=== PATIENT | male | born 1995 | race Caucasian/White ===

== ENCOUNTER 2020-05-25 08:50 | Emergency (ER) | payer SELFPAY ==
[~2020-05-25] VITALS: Ht 172.7 cm; Wt 59.1 kg
--- NOTE | 2020-05-25 09:47 | NUR ---
pt given sandwich, applesauce, juice, cheese. pt eating no distress noted. no assistance needed.
[2020-05-25 10:01] VITALS: BP 120/78
== END 2020-05-25 10:02 | disposition home or self-care (01) ==
LOC: ER 08:51
DX: F31.9 Bipolar disorder, unspecified (principal); R00.0 Tachycardia, unspecified; F15.90 Other stimulant use, unspecified, uncomplicated; F17.200 Nicotine dependence, unspecified, uncomplicated; Z72.89 Other problems related to lifestyle; Z59.0 Homelessness
CPT/HCPCS: 99284

== ENCOUNTER 2020-06-03 16:36 | Emergency (ER) | payer MEDICAID, OTHER ==
[~2020-06-03] VITALS: Ht 177.8 cm; Wt 50.0 kg
[2020-06-03] MEDS ORDERED: normal saline 1000ML IV soln IV ONE (16:50)
[2020-06-03 17:08] LABS: HEMOGLOBIN 13.7 g/dl (14.0-17.9); MEAN CORPUSCULAR HEMOGLOBIN 30.2 PG (27.0-31.0); MEAN CORPUSCULAR VOLUME 90.2 FL (78-98); PLATELET COUNT 302 X10'3 (140-440); WHITE BLOOD COUNT 4.6 X10'3 (4.5-11.0)
[2020-06-03 17:09] LABS: BASOPHILS % (AUTO) 0.9 % (0-1); HEMATOCRIT 40.9 % (42.0-52.0); LYMPHOCYTES # (AUTO) 1.4 X10'3 (1.1-4.8); LYMPHOCYTES % (AUTO) 29.8 % (21-51); MEAN CORPUSCULAR HGB CONC 33.4 g/dL (33.0-36.5); MEAN PLATELET VOLUME 8.2 FL (7.4-10.4); MONOCYTES # (AUTO) 0.6 X10'3 (0-0.9); NEUTROPHILS # (AUTO) 2.5 X10'3 (1.8-7.7); NEUTROPHILS % (AUTO) 55.3 % (42-75); RED BLOOD COUNT 4.53 X10'6 (4.70-6.10); RED CELL DISTRIBUTION WIDTH 14.1 % (11.5-14.5)
[2020-06-03 17:19] LABS: ALANINE AMINOTRANSFERASE 23 U/L (12-78); ALBUMIN 3.4 G/DL (3.4-5.0); ALBUMIN/GLOBULIN RATIO 1.4 (1.1-1.5); ALKALINE PHOSPHATASE 73 IU/L (46-116); ANION GAP 10 (8-16); ASPARTATE AMINO TRANSFERASE 17 U/L (10-37); BILIRUBIN,TOTAL 0.4 MG/DL (0.1-1.0); BLOOD UREA NITROGEN 17 MG/DL (7-18); BUN/CREATININE RATIO 17.2 (5.4-32.0); CALCIUM 8.8 MG/DL (8.5-10.1); CHLORIDE 103 MMOL/L (99-107); CREATININE 0.99 MG/DL (0.60-1.10); ETHANOL < 0.010 GM/DL (0.0-0.010); GLUCOSE 89 MG/DL (70-104); POTASSIUM 3.5 MMOL/L (3.5-5.1); SODIUM 141 MMOL/L (135-145); TOTAL CARBON DIOXIDE 28.2 MMOL/L (24-32); TOTAL PROTEIN 5.9 G/DL (6.4-8.2); eGFR > 90 ML/MIN
--- NOTE | 2020-06-03 17:45 | NUR ---
Pt reports feeling like he wishes he was , suicidial, no plan. He is calm and cooperative
[2020-06-03] MEDS ORDERED: ondansetron/PF 4mg/2ml inj IV ONE (18:25)
[2020-06-03 18:31] LABS: COLOR,URINE YELLOW (Yellow); GLUCOSE, URINE NEGATIVE (Neg); KETONES,URINE TRACE mg/dl (Neg); LEUKOCYTE ESTERASE ,URINE NEGATIVE (Neg); NITRITES, URINE NEGATIVE (Neg); OCCULT BLOOD,URINE LARGE (Neg); PROTEIN,URINE NEGATIVE (Neg)
[2020-06-03 18:39] LABS: URINE AMPHETAMINE SCREEN NEGATIVE (Neg); URINE BARBITUATE SCREEN NEGATIVE (Neg); URINE BENZODIAZEPINES SCREEN NEGATIVE (Neg); URINE CANNABINOID SCREEN NEGATIVE (Neg); URINE COCAINE SCREEN NEGATIVE (Neg); URINE METHADONE SCREEN NEGATIVE (Neg); URINE OPIATE SCREEN NEGATIVE (Neg); URINE PHENCYCLIDINE SCREEN NEGATIVE (Neg)
[2020-06-03 18:40] LABS: UA COLLECTION TYPE URINAL
[2020-06-03 18:41] LABS: CLARITY,URINE SLIGHTLY CLOUDY (Clear)
[2020-06-03 18:42] LABS: BACTERIA,URINE FEW /HPF (Neg); MUCUS STRANDS MODERATE /LPF (Neg); RBC,URINE 50-100 /HPF (0-2); SQUAMOUS EPITHELIAL CELL,UR FEW /LPF (FEW); WBC,URINE 0-4 /HPF (0-4)
--- NOTE | 2020-06-03 20:43 | NUR ---
Patient's packet was sent to [facility].
--- NOTE | 2020-06-03 21:00 | NUR ---
Water, food, toileting offered
--- NOTE | 2020-06-03 22:16 | NUR ---
Pt resting in bed, RR even and unlabored, no distress
[2020-06-03] MEDS ORDERED: NO HOME MEDS (23:37)
--- NOTE | 2020-06-04 | NUR ---
NO SIGNS OF DISTRESS
--- NOTE | 2020-06-04 01:00 | NUR ---
NO NAUSEA AT THIS TIME REQUESTS JUICE, TOLERATED WEL WITHOUT N/V
--- NOTE | 2020-06-04 02:00 | NUR ---
SLEEPING NO DISTRESS NOTED
--- NOTE | 2020-06-04 03:00 | NUR ---
EYES CLOSED RESTING NO ACUTE DISTRESS NOTED,
--- NOTE | 2020-06-04 04:59 | NUR ---
SLEEPING, NO SIGNS OF DISTRESS
--- NOTE | 2020-06-04 06:06 | NUR ---
UNEVENTFUL NIGHT, NO SIGNS OF DISTRESS COOPERATIVE
--- NOTE | 2020-06-04 07:00 | NUR ---
Pt curled in position sleeping with complaints.
--- NOTE | 2020-06-04 09:00 | NUR ---
Pt cooperative with assessment from [facility] who determined pt to meet criteria for 5150. After assessment, pt returned to sleep without signs of distress.
--- NOTE | 2020-06-04 11:00 | NUR ---
Pt currently sleeping in bed without complaints or signs of distress. Pt did get up for a brief moment and ask for shoes. After minimal reassurance that he doesn't need shoes right now, pt returned to bed and sleep.
--- NOTE | 2020-06-04 13:00 | NUR ---
Pt awake to eat lunch and had been sleeping prior. No complaints.
--- NOTE | 2020-06-04 14:35 | NUR ---
Patient awake and resting supine. No distress observed. Continue to monitor.
[2020-06-04] MEDS ORDERED: LORazepam 1 MG tablet PO ONE ×2 (15:40→19:45)
--- NOTE | 2020-06-04 15:42 | NUR ---
Patient got up and walked fast and then out to the Security Watson. Security caught him in the watson and he walked back to his bed. Patient tell RNs that he wants to leave. Patient is homeless and has schizophrenia and is not on beds. Patient aged out of Foster care and has had a hard life. Continue to monitor.
--- NOTE | 2020-06-04 16:27 | NUR ---
Patient laying supine in bed awake. RN gave patient 2 mg Ativan PO to help calm his anxiety down.
[2020-06-04] MEDS ORDERED: ibuprofen 200mg tablet PO ONE (17:25)
--- NOTE | 2020-06-04 17:33 | NUR ---
Patient given Motrin for hand, back and feet pain. Patient is calm and cooperative. Continue to monitor.
--- NOTE | 2020-06-04 18:00 | NUR ---
Patient ate 100% of his dinner. Patient appears to be responding to internal stimuli. Laughing and talking to himself. Continue to monitor.
--- NOTE | 2020-06-04 18:58 | NUR ---
Patient is low fowlers in bed. He occasionaly wanders the unit. Patient is oriented to person and place, not to time and situation. Patient looks to be responding to internal stimuli at times. Patients bed is in direct view from the nurses station. Frequent rounding is being done for patient and staff safety.
--- NOTE | 2020-06-04 19:22 | NUR ---
Patient requires re-direction to bed, he wants to wander to restricted areas of the unit. Patient has been [facility] by [facility] He will be admitted there tonight.
[2020-06-04] MEDS ORDERED: haloperidol 5mg tablet PO ONE (19:45)
[2020-06-04] MEDS ORDERED: diphenhydrAMINE 25mg capsule PO ONE (19:45)
--- NOTE | 2020-06-04 19:46 | NUR ---
Patient continues with delusional behavior, he is difficult to re-direct. Ativan, Benadryl, and Haldol will be administered.
--- NOTE | 2020-06-04 19:57 | NUR ---
Patient tells this tag writer that he doesn't remember the last time he slept. He was compliant with taking his medications. Patient reassured that he will sleep well tonight.
[2020-06-04 21:44] VITALS: BP 123/78
== END 2020-06-04 21:47 | disposition home or self-care (01) ==
LOC: ER 16:36
DX: R45.851 Suicidal ideations (principal); Z20.822 Contact with and (suspected) exposure to COVID-19; F15.10 Other stimulant abuse, uncomplicated; F31.9 Bipolar disorder, unspecified; F20.9 Schizophrenia, unspecified; Z87.891 Personal history of nicotine dependence; Z59.0 Homelessness; Z56.0 Unemployment, unspecified; Z72.89 Other problems related to lifestyle
CPT/HCPCS: 36415; 71045; 80053; 80305; 80320; 81001; 85025; 87081; 87426; 96361; 96374; 99285; J2405; J7030; Q0163

== ENCOUNTER 2020-06-04 20:16 | Inpatient (IN) | payer MEDICAID, OTHER ==
[~2020-06-04] VITALS: Ht 167.6 cm; Wt 63.9 kg
[~2020-06-04 20:16] MED LIST: NO HOME MEDS
--- NOTE | 2020-06-04 21:05 | NUR ---
Admit note: Pt arrived on floor at 20:45 accompanied by security and RANDALL Murdock. Pt had no belongings he was brought to ER Naked. He took a shower clean scrubs provided. Safety check and skin check completed. Pt is cooperative and pleasant with admit process. Addendum: 06/04/20 at 2139 by Oscar Hudson RN Pt admitted for 5150 for dts after being found walking down the road naked. pt reported to ems that he is suicidal and is hearing voices. Pt has a hx of schizophrenia and previous suicide attempt via overdose on aspirin.
[2020-06-04] MEDS ORDERED: mag hydrox/Alum hydrox/simeth 30ml oral suspension PO PRN (21:15)
[2020-06-04] MEDS ORDERED: loperamide 2mg capsule PO PRN (21:15)
[2020-06-04] MEDS ORDERED: NICOTINE POLACRILEX 2 MG LOZENGE BC PRN (21:15)
[2020-06-04] MEDS ORDERED: magnesium hydroxide 30ml (MOM) UD suspension PO PRN (21:15)
[2020-06-04] MEDS ORDERED: acetaminophen 325mg tablet PO PRN ×2 (21:15)
[2020-06-04 21:37] VITALS: BP 114/84
[2020-06-04] MEDS: traZODone 50mg tablet PO PRN ×2 (21:42→22:11)
[2020-06-04] MEDS: LORazepam 1 MG tablet PO PRN (22:11)
[2020-06-05 07:35] VITALS: BP 102/51
--- NOTE | 2020-06-05 08:28 | NUR ---
Malnutrition Consult: Pt admit DX SI and meth abuse per EMR. Pt has no significant wt loss hx in past 10 days compares w/ ER visit 05/25 and appeared well-developed/well-nourished at that time per EMR. Pt has normal strength, no edema/wounds, and pending PO intake regular diet this admit. Pt lacks minimum 2 malnutrition criteria at this time. To provide initial assessment on above date. Addendum: 06/05/20 at [address] Amended: Links added.
--- NOTE | 2020-06-05 09:17 | NUR ---
Aydin was listed as a missing person on D's website. He gave teletypewriter operator verbal permission to call dispatch to inform that he is no longer missing. Called dispatch (ph# [phone]) and was informed that he was no longer considered missing. They were unable to tell teletypewriter operator who had made the missing persons report. JASON Jackson
--- NOTE | 2020-06-05 17:57 | NUR ---
Nursing Progress Note: Legal hold: 5150 expires 06/07 @ 2147 Client on involuntary status for DTS Report received from Collette PEREIRA with use of SBAR Why are they here: Pt admitted for 5150 for dts after being found walking down the road naked. pt reported to ems that he is suicidal and is hearing voices. Pt has a hx of schizophrenia and previous suicide attempt via overdose on aspirin. Assessment What has happened this shift: Pt up for meals and did initiate taking a shower, but spent most of the day lying or sleeping in his bed. Pt does not initiate interaction with others. Pt did state that he does hear voices at times and that he has racing thoughts; though, he says they are going through his head so fast that he doesnt know the content. Pt denies S.I. and H.I. at this time. S/I, H/I: denies A/VH: denies Sleep: napping on and off ADL's: shower Group attendance: n/a Were meds taken: n/a Any med S/E Mental Status Exam Appearance: hospital scrubs Eye contact: poor Behavior: isolative/withdrawn Speech: impoverished Mood: depressed Affect: blunted Thought process: unable to assess Thought Content: unable to assess Cognition: unable to assess Insight: poor Judgment: poor Interventions PRN's used: n/a Therapeutic interventions: 1:1 assessment, maintained a safe and therapeutic environment, ensured contract for safety, therapeutic communication, active listening, medication administration/education/monitoring, behavior monitoring and intervention as needed; reality orientation, distraction, redirection, limit setting, provided positive reinforcement, and maintained Q 15 minute safety checks. Restraints/seclusion/emergency medication: n/a Justification of Continued Inpatient Treatment: Pt. requires interruption of current crises, medication adjustments, and a safe and supportive environment.
[2020-06-05] MEDS ORDERED: hydrOXYzine 25 MG tablet PO PRN (19:35)
[2020-06-05 19:54] VITALS: BP 112/69
[2020-06-05] MEDS: olanzapine 10mg tablet PO SCH (20:08)
--- NOTE | 2020-06-06 02:24 | NUR ---
Nursing Progress Note: Legal hold: 5150 expires 06/07 @ 2143 Client on involuntary status for DTS Report received from RANDALL Moore with use of SBAR Why are they here: Pt admitted for 5150 for dts after being found walking down the road naked. pt reported to ems that he is suicidal and is hearing voices. Pt has a hx of schizophrenia and previous suicide attempt via overdose on aspirin. Assessment What has happened this shift: Pt mostly isolated to his room for evening shift. During 1:1 pt reported that he is congested but has no other symptoms or concerns at that time. Pt did not want to engage and was mildly annoyed at having to answer questions for the assessment. Pt accepted hs meds without issue. Pt later awoke and requested a snack. S/I, H/I: denies A/VH: denies Sleep: see sleep assessment ADL's: independent Group attendance: n/a Were meds taken: yes Any med S/E: no Mental Status Exam Appearance: hospital scrubs, lying in bed Eye contact: poor Behavior: isolative/withdrawn Speech: impoverished Mood: depressed Affect: blunted Thought process: unable to assess Thought Content: unable to assess Cognition: unable to assess Insight: poor Judgment: poor Interventions PRN's used: n/a Therapeutic interventions: 1:1 assessment, maintained a safe and therapeutic environment, ensured contract for safety, therapeutic communication, active listening, medication administration/education/monitoring, behavior monitoring and intervention as needed; reality orientation, distraction, redirection, limit setting, provided positive reinforcement, and maintained Q 15 minute safety checks. Restraints/seclusion/emergency medication: n/a Justification of Continued Inpatient Treatment: Pt. requires interruption of current crises, medication adjustments, and a safe and supportive environment.
[2020-06-06 07:31] VITALS: BP 97/57
[2020-06-06] MEDS: olanzapine 10mg tablet PO SCH ×2 (08:37→20:09)
--- NOTE | 2020-06-06 16:34 | NUR ---
Nursing Progress Note: Legal hold: 5150 Client on is involuntary status for DTS Report received from nurse with use of SBAR: RANDALL Posadas Why are they here: Pt admitted for 5150 for DTS after being found walking down the road naked. Pt reported to EMS that he is suicidal and is hearing voices. Pt has a hx of schizophrenia and previous suicide attempt via overdose on aspirin. Assessment What has happened this shift: Received pt. sleeping in bed at the beginning of the shift, he continued to isolate here throughout the shift napping intermittently. Pt. was awoken by staff for breakfast and immediately retreated back to his bed afterwards, this play writer greeted him and attempted to establish rapport. Pt. presents as cooperative, fatigued, guarded, isolative, and slightly irritable. Attempted to complete 1:1, however pt. refused MH assessment. He is A&O X3, however when questioned by this play writer, is unable to report why he is here. Pt. states, "I'm fucked up." He does report some pain in bilateral legs r/t "pulled muscles," however denies the need for any Tylenol. Pt. then rolls over and states slightly irritably, "I want to go to sleep." This play writer later spoke to pt's father via telephone with his permission. Pt's father reports that pt. lives in [place], [place] and had gone to visit his brother in [place] and had stopped taking his psychiatric medications. From there pt. went backpacking with a friend and ended up in [place]. Pt's father reports pt. last received his monthly Invega injection approximately five months ago. He will attempt to obtain pt's medication records form his doctor, Dr. Rodgers. Pt's father's and doctor's telephone numbers were given to EDWIN Disla r/t medication reconciliation and discharge planning. S/I, H/I: Unable to assess A/VH: Unable to assess, appears somewhat internally preoccupied AEB distractibility Sleep: Sleep hours are 10.3, pt. remained in bed napping intermittently throughout the day ADL's: Pt. requires direction and encouragement Group attendance: N/A Were meds taken: Yes Any med S/E: None Mental Status Exam Appearance:Disheveled r/t laying in bed all day Eye contact: Poor Behavior:Cooperative, fatigued, guarded, isolative, and slightly irritable Speech: Soft, minimal, and mumbles Mood: Guarded Affect: Constricted Thought process: Poverty of thought with possible thought blocking Thought Content: Unable to assess, possible A/V/ARGUELLES and paranoid delusions Cognition: A&O X3 (not to why here) Insight: Poor Judgment: Poor Interventions PRN's used: None Therapeutic interventions: Introduced self and attempted to establish rapport, maintained and safe and therapeutic environment, provided clear and simple instructions, attempted to orient to reality, encouraged independent performance of ADLs, and maintained Q 15min safety checks. Restraints/seclusion/emergency medication: N/A Justification of Continued Inpatient Treatment: Pt. requires interruption of current crisis, medication adjustments, and a safe and therapeutic environment.
[2020-06-06] MEDS: traZODone 50mg tablet PO PRN (20:09)
[2020-06-06 20:53] VITALS: BP 115/64
--- NOTE | 2020-06-07 00:51 | NUR ---
Nursing Progress Note: Legal hold: 5150 expires 06/07 @ 2148 Client on involuntary status for DTS Report received from RANDALL Moore with use of SBAR Why are they here: Pt admitted for 5150 for dts after being found walking down the road naked. pt reported to ems that he is suicidal and is hearing voices. Pt has a hx of schizophrenia and previous suicide attempt via overdose on aspirin. Assessment What has happened this shift: Pt continues to isolate, giving only minimal answers to questions. When asked how the voices are today, he responded, theyre there, and would not elaborate. Pt made a delusional statement about bones sticking out of his ankle and how he needs to get it fixed. Pt stayed in bed all evening and only awoke when approached. S/I, H/I: denies A/VH: denies Sleep: see sleep assessment ADL's: independent Group attendance: n/a Were meds taken: yes Any med S/E: no Mental Status Exam Appearance: hospital scrubs, lying in bed Eye contact: poor Behavior: isolative/withdrawn Speech: impoverished Mood: depressed Affect: blunted Thought process: unable to assess Thought Content: unable to assess Cognition: unable to assess Insight: poor Judgment: poor Interventions PRN's used: n/a Therapeutic interventions: 1:1 assessment, maintained a safe and therapeutic environment, ensured contract for safety, therapeutic communication, active listening, medication administration/education/monitoring, behavior monitoring and intervention as needed; reality orientation, distraction, redirection, limit setting, provided positive reinforcement, and maintained Q 15 minute safety checks. Restraints/seclusion/emergency medication: n/a Justification of Continued Inpatient Treatment: Pt. requires interruption of current crises, medication adjustments, and a safe and supportive environment.
--- NOTE | 2020-06-07 00:51 | NUR ---
Nursing Progress Note Legal hold: 5150 Client on involuntary status for GD Report received from RANDALL Moore with use of SBAR Why are they here: [facility] to [facility] at 1348 on a 5150 for gravely disabled. Pt is disorganized delusional beliefs, yazidi themes. Pt is unable to formulate plan for food, clothing and chcf. Pt is homeless, former foster care, alf placements. Pt has failed independent living due to behavioral issues and substance abuse. No medical history and just substance abuse history. It was found out pt was a missing persons. A secretary of police arrived to identify the pt and he should be giving his mother the contact information to her. Assessment What has happened this shift: Pt isolated to his room all evening. Pt started the shift off complaining about not getting shravan crackers to cure his hiccups. Pt stated that he is pissed he cant have what he wants and was becoming visibly agitated. Pt requested something to calm him down. EDWIN Haney consulted with patient and gave verbal order for 10 mg haldol, 50 mg benadryl, 2 mg ativan. Pt accepted hs meds without issue. Pt remained in bed for the rest of the night. S/I, H/I: Denies. A/VH: Denies Sleep: see sleep assessment ADL's: Independent. Group attendance: No group today Were meds taken: yes Any med S/E: None noted Mental Status Exam Appearance: Showered wearing clean green scrubs Eye contact: Direct. Behavior: Flippant, labile Speech: WNL Mood: Depressed Affect: Flat Thought process: Circumstantial Thought Content: Wrongly admitted Cognition: Alert Insight: Poor. Judgment: Poor. Interventions PRN's used: n/a Therapeutic interventions: Introduced self and established rapport, ensured contract for safety, maintained a safe and supportive environment, provided clear and simple instructions, attempted to orient to reality, monitored behaviors and need for intervention, and maintained Q 15min safety checks. Restraints/seclusion/emergency medication: N/A Justification of Continued Inpatient Treatment: Pt. requires interruption of current crises, medication adjustments, and a safe and supportive environment. Addendum: 06/07/20 at 0052 by Oscar Hudson RN disregard note, wrong patient
[2020-06-07 07:25] VITALS: BP 110/67
[2020-06-07] MEDS: olanzapine 10mg tablet PO SCH ×2 (10:37→19:06)
--- NOTE | 2020-06-07 11:59 | NUR ---
PHONE CALL W/DAD Aydin gave senior grant writer verbal permission to return his dad's call. Dad, Venkata, had left senior grant writer two messages requesting a call back. Returned Venkata's call (ph# [phone]). Venkata reported Aydin lives with him in [place], [place], and that he can come pick him up when he is ready to discharge. He reported Aydin has been traveling for the past 2-3 months. He first went to visit his brother in [place] and then traveled with a friend and ended up in [place] somehow. He reported the friend left Aydin after Aydin stopping taking his medications and became psychotic. Venkata reported he thinks the friend took Aydin's bank card so Aydin has been unable to access his SSI money. He is in the process of trying to get that resolved. Venkata reported Aydin has been diagnosed with Schizophrenia, ADD, and high functioning autism. Psychiatrist: Dr Rodgers at [facility] Previous medications: Invega Sustenna Benzotropine Clonazapam Seroquel Informed Venkata that senior grant writer will consult with EDWIN Castanon, regarding tx plan and will call Venkata back. Venkata is quite concerned that Aydin will get "kicked out on to the streets" before he can travel here to take him home to [place]. JASON Jackson
--- NOTE | 2020-06-07 17:03 | NUR ---
Nursing Progress Note: Legal hold: 5150 Client on is involuntary status for DTS Report received from nurse with use of SBAR: RANDALL Posadas Why are they here: Pt admitted for 5150 for DTS after being found walking down the road naked. Pt reported to EMS that he is suicidal and is hearing voices. Pt has a hx of schizophrenia and previous suicide attempt via overdose on aspirin. Assessment What has happened this shift: Received pt. asleep in bed at beginning of shift. Pt. awoke for breakfast and then went back to sleep. Pt. initially refused AM Zyprexa but then agreed to take it 2 hours later. RN attempted 1:1 at bedside, pt. refused and then pretended to be asleep, two minutes later pt. observed getting out of bed. S/I, H/I: Unable to assess A/VH: Unable to assess, pt. appears internally preoccupied AEB distractibility Sleep: Pt. in bed most of day, napping intermittently. ADL's: Pt. requires direction and encouragement Group attendance: N/A Were meds taken: Yes Any med S/E: None observed or reported Mental Status Exam Appearance: Disheveled, wearing green scrubs. Eye contact: Poor Behavior: Resistive to care, fatigued, isolated to room, socially withdrawn. Speech: Soft, minimal, and mumbles. Mood: Guarded Affect: Constricted Thought process: Unable to assess properly, but pt. appears to have thought blocking. Thought Content: Unable to assess Cognition: A&O X3 (not to why here) Insight: Poor Judgment: Poor Interventions PRN's used: None Therapeutic interventions: Introduced self and attempted to establish rapport, maintained and safe and therapeutic environment, provided clear and simple instructions, attempted to orient to reality, encouraged independent performance of ADLs, and maintained Q 15min safety checks. Restraints/seclusion/emergency medication: N/A Justification of Continued Inpatient Treatment: Pt. requires interruption of current crisis, medication adjustments, and a safe and therapeutic environment.
[2020-06-07] MEDS: traZODone 50mg tablet PO PRN (19:06)
[2020-06-07 20:08] VITALS: BP 92/50
--- NOTE | 2020-06-07 23:53 | NUR ---
Nursing Progress Note: Legal hold: 5150 expires 06/07 @ 2144 Client on involuntary status for DTS Report received from RANDALL Moore with use of SBAR Why are they here: Pt admitted for 5150 for dts after being found walking down the road naked. pt reported to ems that he is suicidal and is hearing voices. Pt has a hx of schizophrenia and previous suicide attempt via overdose on aspirin. Assessment What has happened this shift: Pt continues to isolate, mostly sleeping in bed. Pt is somewhat cooperative for assessments but doesnt want to be bothered. When asked about talking to his dad he said it didnt go so good. Pt also denies remembering that he refused his am meds. Pt requested his pm meds. Pt did not have any complaints during this shift. Hs meds taken without issue S/I, H/I: denies A/VH: denies Sleep: see sleep assessment ADL's: independent Group attendance: n/a Were meds taken: yes Any med S/E: no Mental Status Exam Appearance: hospital scrubs, lying in bed Eye contact: poor Behavior: isolative/withdrawn Speech: impoverished Mood: depressed Affect: blunted Thought process: unable to assess Thought Content: unable to assess Cognition: unable to assess Insight: poor Judgment: poor Interventions PRN's used: n/a Therapeutic interventions: 1:1 assessment, maintained a safe and therapeutic environment, ensured contract for safety, therapeutic communication, active listening, medication administration/education/monitoring, behavior monitoring and intervention as needed; reality orientation, distraction, redirection, limit setting, provided positive reinforcement, and maintained Q 15 minute safety checks. Restraints/seclusion/emergency medication: n/a Justification of Continued Inpatient Treatment: Pt. requires interruption of current crises, medication adjustments, and a safe and supportive environment.
[2020-06-08 07:30] VITALS: BP 100/60
[2020-06-08] MEDS: olanzapine 10mg tablet PO SCH ×3 (08:08→20:15)
--- NOTE | 2020-06-08 12:44 | NUR ---
PROBABLE CAUSE HEARING Patients Name: Aydin Gilbert Admission Date: 06/04/20 Date of 5150: 06/04/20 Written by: [facility] Criteria: DTS Summary of Facts: Aydin reports ongoing suicidal thoughts, found naked, wandering streets, confused, disorganized, no family supports, states Bugs are crawling all over me [place] Date of 5250: 06/07/2020 Written by: Beltran Criteria: DTS Summary of Facts: Pt reports depression. Suicidal with a plan. Pt responded, anyway possible. No significant change in AH. Pt is guarded, blunted affected. Appears depressed, isolating, blunted affect Diagnosis: Schizoaffective disorder Behavior during 72 HRS: Pt reports he has AH, SI w/a plan to do it anyway possible FOOD: 100 SLEEPIN.5 ADLS: ind CUSTODIAL: Lives w/dad MEDICATION DOSAGE FREQUENCY DURATION Zyprexa 10 mg po bid Trazodone 100 mg po q hs PRN last used last night Addendum: 06/08/20 at 1611 by Sheila Mckinney RN Aydin attended and contested his hearing. He appeared downcast, blunted affect, looking down toward the ground, at one point appeared to have incipient tears and his skin began flushing - this was when he was asked about his AH. Aydin reported that he should be released, but when asked why he stated after several seconds, "I, um, I couldn't tell you". He was asked when he last had SI and stated "I don't know", when asked where he would go to live he said "I have not place to go", however he has a dad who is supportive who he lives with. At times during the interview he would be looking down and his lips would be moving. When the chief merchandising officer asked him about what his AH says he stated, after several seconds, "a lot of it, it's scary; everything is twisted". He lost his hearing and will remain on a 5250.
--- NOTE | 2020-06-08 17:32 | NUR ---
Nursing Progress Note: Legal hold: 5250 Client on is involuntary status for DTS Report received from nurse with use of SBAR: RANDALL Posadas Why they are here: Pt admitted for 5150 for DTS after being found walking down the road naked. Pt reported to EMS that he is suicidal and is hearing voices. Pt has a hx of schizophrenia and previous suicide attempt via overdose on aspirin. Assessment What has happened this shift: Received pt. asleep in bed at beginning of shift. Pt. awoke for breakfast and took his medication and then went back to sleep. Pt. observed making his bed. RN attempted to do 1:1 at bedside, pt. refused physical assessment, stating, Dont touch me. Pt. responded to RNs interview questions with minimal one word responses, stating, yes or no. When asked if he knew why he was admitted, pt. replies, too much drugs. But did not further elaborate. Pt. denies SI/HI, A/V hallucinations. Pt. had court hearing today and reportedly stated that his voices are very bad. Pt.s 5250 upheld. Pt. encouraged to shower but refused. S/I, H/I: Denies A/VH: Denies, but pt. appears internally preoccupied. Sleep: Pt. in bed most of day, napping intermittently. ADL's: Pt. requires direction and encouragement. Group attendance: N/A Were meds taken: Yes Any med S/E: Denies Mental Status Exam Appearance: Disheveled, wearing green scrubs. Eye contact: Poor Behavior: Resistive to care, fatigued, isolated to room, socially withdrawn. Speech: Soft, minimal, and mumbles. Mood: Guarded Affect: Constricted Thought process: Unable to assess properly, but pt. appears to have thought blocking. Thought Content: Unable to assess Cognition: A&O X3 (not to why here) Insight: Poor Judgment: Poor Interventions PRN's used: None Therapeutic interventions: Introduced self and attempted to establish rapport, maintained and safe and therapeutic environment, provided clear and simple instructions, attempted to orient to reality, encouraged independent performance of ADLs, and maintained Q 15min safety checks. Restraints/seclusion/emergency medication: N/A Justification of Continued Inpatient Treatment: Pt. requires interruption of current crisis, medication adjustments, and a safe and therapeutic environment.
[2020-06-08 20:00] VITALS: BP 99/57
[2020-06-08] MEDS: traZODone 50mg tablet PO PRN (20:11)
--- NOTE | 2020-06-09 02:33 | NUR ---
Nursing Progress Note: Aydin Legal hold: 5250 Client on is involuntary status for DTS Report received from nurse with use of SBAR: RANDALL Conroy Why they are here: Pt admitted for 5150 for DTS after being found walking down the road naked. Pt reported to EMS that he is suicidal and is hearing voices. Pt has a hx of schizophrenia and previous suicide attempt via overdose on aspirin. Assessment What has happened this shift: Received pt. lying in bed at change of shift. Pt irritable about not wanting his vitals taken and stating why cant I get some sleep around here. Pt then complied and wouldnt answer this RN regarding MH assessment nor 1:1 physical assessment. Pt refused NOC med telling this RN to f off. S/I, H/I: could not assess A/VH: could not assess, but pt. appears internally preoccupied. Sleep: ADL's: Pt. requires direction and encouragement. Group attendance: N/A Were meds taken: No Any med S/E: Denies Mental Status Exam Appearance: Disheveled, wearing green scrubs. Eye contact: Poor Behavior: Resistive to care, fatigued, isolated to room, socially withdrawn. Speech: Soft, minimal, and mumbles. Mood: Guarded Affect: Constricted Thought process: Unable to assess properly, but pt. appears to have thought blocking. Thought Content: Unable to assess Cognition: A&O X3 (not to why here) Insight: Poor Judgment: Poor Interventions PRN's used: None Therapeutic interventions: Introduced self and attempted to establish rapport, maintained and safe and therapeutic environment, provided clear and simple instructions, attempted to orient to reality, encouraged independent performance of ADLs, and maintained Q 15min safety checks. Restraints/seclusion/emergency medication: N/A Justification of Continued Inpatient Treatment: Pt. requires interruption of current crisis, medication adjustments, and a safe and therapeutic environment.
[2020-06-09 08:00] VITALS: BP 113/75
[2020-06-09] MEDS: olanzapine 10mg tablet PO SCH ×2 (08:04→20:02)
--- NOTE | 2020-06-09 17:28 | NUR ---
Nursing Progress Note: Legal hold: 5250 Client on is involuntary status for DTS Report received from nurse with use of SBAR: RANDALL Gupta Why they are here: Pt admitted for 5150 for DTS after being found walking down the road naked. Pt reported to EMS that he is suicidal and is hearing voices. Pt has a hx of schizophrenia and previous suicide attempt via overdose on aspirin. Assessment What has happened this shift: Received pt. asleep in bed at beginning of shift. Pt. awoke for breakfast and took his medication and then went back to sleep. RN attempted to do 1:1 at bedside and pt. pretended to be asleep in bed. RN attempted to assess pt. in the afternoon and pt. again ignored this RN. S/I, H/I: Denies A/VH: Denies, but pt. appears internally preoccupied. Sleep: Pt. in bed most of day, napping intermittently. ADL's: Pt. requires direction and encouragement. Group attendance: N/A Were meds taken: Yes Any med S/E: Denies Mental Status Exam Appearance: Disheveled, wearing green scrubs. Eye contact: Poor Behavior: Resistive to care, fatigued, isolated to room, socially withdrawn, napping and also pretending to sleep. Speech: Soft, minimal, and mumbles. Mood: Depressed Affect: Constricted Thought process: Unable to assess adequately but pt. appears to have thought blocking. Thought Content: Unable to assess Cognition: Unable to assess. Insight: Poor Judgment: Poor Interventions PRN's used: None Therapeutic interventions: Introduced self and attempted to establish rapport, maintained and safe and therapeutic environment, provided clear and simple instructions, attempted to orient to reality, encouraged independent performance of ADLs, and maintained Q 15min safety checks. Restraints/seclusion/emergency medication: N/A Justification of Continued Inpatient Treatment: Pt. requires interruption of current crisis, medication adjustments, and a safe and therapeutic environment.
[2020-06-09 20:00] VITALS: BP 104/68
--- NOTE | 2020-06-10 02:41 | NUR ---
Nursing Progress Note: Aydin Legal hold: 5250 Client on is involuntary status for DTS Report received from nurse with use of SBAR: RANDALL Conroy Why they are here: Pt admitted for 5150 for DTS after being found walking down the road naked. Pt reported to EMS that he is suicidal and is hearing voices. Pt has a hx of schizophrenia and previous suicide attempt via overdose on aspirin. Assessment What has happened this shift: Received pt. asleep in bed at beginning of shift. Pt calm and cooperative with 1:1 assessment, denies MH symptoms. Pt took NOC medications without any issues, then went back to sleep. S/I, H/I: Denies A/VH: Denies, but pt. appears internally preoccupied. Sleep: ADL's: Pt. requires direction and encouragement. Group attendance: N/A Were meds taken: Yes Any med S/E: Denies Mental Status Exam Appearance: Disheveled, wearing green scrubs. Eye contact: Poor Behavior: Resistive to care, fatigued, isolated to room, socially withdrawn Speech: Soft, minimal, and mumbles. Mood: Depressed Affect: Constricted Thought process: Unable to assess adequately but pt. appears to have thought blocking. Thought Content: Unable to assess Cognition: Unable to assess. Insight: Poor Judgment: Poor Interventions PRN's used: None Therapeutic interventions: Introduced self and attempted to establish rapport, maintained and safe and therapeutic environment, provided clear and simple instructions, attempted to orient to reality, encouraged independent performance of ADLs, and maintained Q 15min safety checks. Restraints/seclusion/emergency medication: N/A Justification of Continued Inpatient Treatment: Pt. requires interruption of current crisis, medication adjustments, and a safe and therapeutic environment.
[2020-06-10 08:00] VITALS: BP 94/59
[2020-06-10] MEDS: olanzapine 10mg tablet PO SCH ×2 (08:00→20:38)
--- NOTE | 2020-06-10 10:18 | NUR ---
Initial: Pt admit DX SI, meth abuse, schizoaffective d/o per EMR. PO 75-100% avg regular diet meeting needs. LBM 06/09. No nutrition concerns at this time. Will continue to monitor. Rec: 1. continue regular diet 2. routine bowel care 3. weekly wts Addendum: 06/10/20 at [address] Amended: Links added.
--- NOTE | 2020-06-10 17:06 | NUR ---
Nursing Progress Note: Legal hold: 5250 Client on is involuntary status for DTS Report received from RANDALL Bang with use of SBAR: Why they are here: Pt admitted for 5150 for DTS after being found walking down the road naked. Pt reported to EMS that he is suicidal and is hearing voices. Pt has a hx of schizophrenia and previous suicide attempt via overdose on aspirin. Assessment What has happened this shift: Pt attended breakfast but did not to engage conversation. He took his medication but did not speak. He was mostly isolative for the day in his room in bed coming out only for meals, but not snack time or other interaction. S/I, H/I: Unable to assess A/VH: Unable to assess Sleep: Napped much of the day ADL's: Independent Group attendance: No Were meds taken: Yes Any med S/E: None noted Mental Status Exam Appearance: Disheveled, unit scrubs. Eye contact: Poor Behavior: Isolative, guarded, paranoid Speech: Mumbles Mood: Withdrawn Affect: Blunted/angry Thought process: Unable to assess Thought Content: Unable to assess Cognition: Alert Insight: Poor Judgment: Poor Interventions PRN's used: None Therapeutic interventions: Introduced self and attempted to establish rapport, maintained and safe and therapeutic environment, provided clear and simple instructions, attempted to orient to reality, encouraged independent performance of ADLs, and maintained Q 15min safety checks. Restraints/seclusion/emergency medication: N/A Justification of Continued Inpatient Treatment: Pt. requires interruption of current crisis, medication adjustments, and a safe and therapeutic environment.
[2020-06-11 07:34] VITALS: BP 103/67
[2020-06-11] MEDS: olanzapine 10mg tablet PO SCH ×2 (08:00→20:24)
--- NOTE | 2020-06-11 13:28 | NUR ---
Nursing Progress Note: Legal hold: 5250 Client on is involuntary status for DTS Report received from nurse with use of SBAR: Sherin Fine RN Why are they here: Pt admitted for 5150 for DTS after being found walking down the road naked. Pt reported to EMS that he is suicidal and is hearing voices. Pt has a hx of schizophrenia and previous suicide attempt via overdose on aspirin. Assessment What has happened this shift: Received pt. sleeping in bed at the beginning of the shift, he was awoken by staff to attend breakfast in the Group Room and afterwards retreated back to bed as is his routine. This film writer attempted to complete 1:1 at bedside, pt. presents as resistive to care, fatigued, irritable, fatigued, and guarded. He had the sheet pulled over his head and alia not open his eyes or respond to his name. This film writer gently touched pt's arm, pulled the sheet from his head, and repeated his name several times in an attempt to make sure he was okay and administer his scheduled medication. Pt. irritably pushed this film writer's hand away and stated agitatedly, "No! I'm not taking it!" This film writer then attempted to question pt. regarding why he did not want to take his medication, but he re-covered his head and would not respond. Later in the morning, this film writer re-approached pt. who continued to lay in bed with the covers over his head. Pt. again would not make eye contact or respond to his name. Again, this film writer touched pt. on the arm in an effort to make sure he was alright and awaken him after stating his name several times with no response, pt. stated irritably, "Leave me alone!" He continued to refuse AM medication despite education provided from this film writer, endorsed to EDWIN Disla. Pt. continued to isolate in bed throughout the day, laying in a position. He did however attend meals, but returned immediately back to bed afterwards. S/I, H/I: Unable to assess A/VH: Unable to assess, appears somewhat internally preoccupied AEB distractibility Sleep: Sleep hours are 7.75, pt. remained in bed napping intermittently throughout the shift ADL's: Pt. requires direction and encouragement Group attendance: N/A Were meds taken: No, pt. refused scheduled Olanzapine 10mg, endorsed to EDWIN Disla Any med S/E: None Mental Status Exam Appearance:Disheveled r/t laying in bed all day Eye contact: Poor, mostly non-existent Behavior:Resistive to care, fatigued, irritable, fatigued, guarded, and isolative Speech: Soft, responds only sometimes in an abrupt and irritable manner Mood: Guarded Affect: Blunted Thought process: Poverty of thought with possible thought blocking Thought Content: Unable to assess, possible A/V/ARGUELLES and paranoid delusions Cognition: A&O X1 (name only) Insight: Poor Judgment: Poor Interventions PRN's used: None Therapeutic interventions: Maintained and safe and therapeutic environment, provided clear and simple instructions, attempted to orient to reality, encouraged compliance with medications and provided education, encouraged independent performance of ADLs, and maintained Q 15min safety checks. Restraints/seclusion/emergency medication: N/A Justification of Continued Inpatient Treatment: Per EDWIN Disla, pt. continues to require medication adjustments and is still very fragile and not ready to be discharged at this time. He requires a safe and supportive environment. Addendum: 06/11/20 at 1839 by Eda Hess RN Pt. approached this film writer at the end of the demanding to know when his hold is up. This film writer provided this information and educated him on taking his medications and participating on the unit. Pt. became agitated and sat on the bed in the Observation Room, stating, "I'm going to just sit right here!" This film writer offered PRN Ativan to pt. which he took and redirection. After a few minutes pt. got up and retreated to his room. Endorsed to Noc shift and will continue to monitor.
[2020-06-11] MEDS: LORazepam 1 MG tablet PO PRN (18:34)
[2020-06-11 20:29] VITALS: BP 100/60
--- NOTE | 2020-06-12 00:12 | NUR ---
Nursing Progress Note: Legal hold: 5250 Client on is involuntary status for DTS Report received from nurse with use of SBAR: RANDALL Conroy Why are they here: Pt admitted for 5150 for DTS after being found walking down the road naked. Pt reported to EMS that he is suicidal and is hearing voices. Pt has a hx of schizophrenia and previous suicide attempt via overdose on aspirin. Assessment What has happened this shift: Patient was in observation room with nurse requesting something for anxiety. Ativan given and pt went back to his room Attempted to complete 1:1 at bedside, pt uncooperative, fatigued, irritable, guarded. He layed there and alia not open his eyes or respond to his name. Later he was in the group room eating snack and was med compliant then returned to his room. S/I, H/I: Unable to assess A/VH: Unable to assess, appears somewhat internally preoccupied AEB distractibility Sleep: See sleep hrs. ADL's: Pt. requires direction and encouragement Group attendance: N/A Were meds taken: yes Any med S/E: None Mental Status Exam Appearance:Disheveled r/t laying in bed all day Eye contact: Poor, mostly non-existent Behavior:Resistive to care, fatigued, irritable, fatigued, guarded, and isolative Speech: Soft, responds only sometimes in an abrupt and irritable manner Mood: Guarded Affect: Blunted Thought process: Poverty of thought with possible thought blocking Thought Content: Unable to assess, possible A/V/ARGUELLES and paranoid delusions Cognition: A&O X1 (name only) Insight: Poor Judgment: Poor Interventions PRN's used: None Therapeutic interventions: Maintained and safe and therapeutic environment, provided clear and simple instructions, attempted to orient to reality, encouraged compliance with medications and provided education, encouraged independent performance of ADLs, and maintained Q 15min safety checks. Restraints/seclusion/emergency medication: N/A Justification of Continued Inpatient Treatment: EDWIN Cormier, pt. continues to require medication adjustments and is still very fragile and not ready to be discharged at this time. He requires a safe and supportive environment.
[2020-06-12 07:17] VITALS: BP 95/60
[2020-06-12] MEDS: olanzapine 10mg tablet PO SCH ×2 (07:45→20:11)
--- NOTE | 2020-06-12 15:26 | NUR ---
Nursing Progress Note: Legal hold: 5250 Client on is involuntary status for DTS Report received from nurse with use of SBAR: Sherin Fine RN Why they are here: Pt admitted for 5150 for DTS after being found walking down the road naked. Pt reported to EMS that he is suicidal and is hearing voices. Pt has a hx of schizophrenia and previous suicide attempt via overdose on aspirin. Assessment What has happened this shift: Received pt asleep in bed. Pt has poor eye contact and resists interaction with staff. Pt denies hallucinations, but continues to endorse depression. Pt did not respond when asked about suicidal thoughts. Pt relays hopelessness. Pt did get up for meals and snacks, but quickly returns to bed and covers up with the sheet. S/I, H/I: Denies A/VH: Denies, but pt. appears internally preoccupied. Sleep: Pt. in bed most of day, napping intermittently. ADL's: Pt. requires direction and encouragement. Group attendance: N/A Were meds taken: Yes Any med S/E: Denies Mental Status Exam Appearance: Disheveled, Eye contact: Poor Behavior: Resistive to care, fatigued, isolated to room, socially withdrawn, napping and also pretending to sleep. Speech: Soft, minimal, and mumbles. Mood: Depressed Affect: Constricted Thought process: Unable to assess adequately but pt. appears to have thought blocking. Thought Content: Unable to assess Cognition: Unable to assess. Insight: Poor Judgment: Poor Interventions PRN's used: None Therapeutic interventions: Introduced self and attempted to establish rapport, maintained and safe and therapeutic environment, provided clear and simple instructions, attempted to orient to reality, encouraged independent performance of ADLs, and maintained Q 15min safety checks. Restraints/seclusion/emergency medication: N/A Justification of Continued Inpatient Treatment: Pt. requires interruption of current crisis, medication adjustments, and a safe and therapeutic environment.
[2020-06-12 19:43] VITALS: BP 95/54
--- NOTE | 2020-06-13 00:19 | NUR ---
Nursing Progress Note: Legal hold: 5250 Client on is involuntary status for DTS Report received from nurse with use of SBAR: Marycarmen RN Why they are here: Pt admitted for 5150 for DTS after being found walking down the road naked. Pt reported to EMS that he is suicidal and is hearing voices. Pt has a hx of schizophrenia and previous suicide attempt via overdose on aspirin. Assessment What has happened this shift: Received pt asleep in bed. Pt has poor eye contact and resists interaction with staff. Pt denies hallucinations, but continues to endorse depression. Pt did not respond when asked about suicidal thoughts. Stayed in bed with sheet pulled over his head. S/I, H/I: Denies A/VH: Denies, but pt. appears internally preoccupied. Sleep: See sleep hrs. ADL's: Pt. requires direction and encouragement. Group attendance: N/A Were meds taken: Yes Any med S/E: Denies Mental Status Exam Appearance: Disheveled, Eye contact: Poor Behavior: Resistive to care, fatigued, isolated to room, socially withdrawn, napping and also pretending to sleep. Speech: Soft, minimal, and mumbles. Mood: Depressed Affect: Constricted Thought process: Unable to assess adequately but pt. appears to have thought blocking. Thought Content: Unable to assess Cognition: Unable to assess. Insight: Poor Judgment: Poor Interventions PRN's used: None Therapeutic interventions: Introduced self and attempted to establish rapport, maintained and safe and therapeutic environment, provided clear and simple instructions, attempted to orient to reality, encouraged independent performance of ADLs, and maintained Q 15min safety checks. Restraints/seclusion/emergency medication: N/A Justification of Continued Inpatient Treatment: Pt. requires interruption of current crisis, medication adjustments, and a safe and therapeutic environment.
[2020-06-13 07:16] VITALS: BP 101/63
[2020-06-13] MEDS: olanzapine 10mg tablet PO SCH ×2 (07:51→20:15)
--- NOTE | 2020-06-13 16:05 | NUR ---
Nursing Progress Note Legal hold: 5250 Client on is involuntary status for DTS Report received from RN with use of SBAR Why they are here: Pt admitted for 5150 for DTS after being found walking down the road naked. Pt reported to EMS that he is suicidal and is hearing voices. Pt has a hx of schizophrenia and previous suicide attempt via overdose on aspirin. Assessment What has happened this shift: Received pt sleeping in bed w/o distress at the beginning of the shift. Pt cooperative with vitals and took AM med quickly, then proceeded to lay down and pull blanket over his head. Pt reports hopelessness and remained in bed for most of the day, coming out for meals and snacks and retuning to bed when done. Pt ignores most questions, and answers few with short or one word responses. S/I, H/I: Denies A/VH: Denies; internally preoccupied Sleep: Pt. in bed most of day, napped ADL's: Requires direction and encouragement. Group attendance: N/A Were meds taken: Yes Any med S/E: Denies Mental Status Exam Appearance: Disheveled/unkempt Eye contact: Poor Behavior: Resistive to care, tired, isolative and withdrawn. Remained in bed for most of shift Speech: Soft, minimal Mood: Depressed Affect: Constricted Thought process: Unable to assess due to poverty of speech/uncooperative Thought Content: Unable to assess Cognition: Unable to assess Insight: Poor Judgment: Poor Interventions PRN's used: None Therapeutic interventions: Introduced self and attempted to establish rapport, maintained and safe and therapeutic environment, provided clear and simple instructions, attempted to orient to reality, encouraged independent performance of ADLs, and maintained Q 15min safety checks. Restraints/seclusion/emergency medication: N/A Justification of Continued Inpatient Treatment: Pt. requires interruption of current crisis, medication adjustments, and a safe and therapeutic environment.
[2020-06-13 20:34] VITALS: BP 119/81
--- NOTE | 2020-06-14 00:08 | NUR ---
Nursing Progress Note Legal hold: 5250 Client on is involuntary status for DTS Report received from Marycarmen PEREIRA with use of SBAR Why they are here: Pt admitted for 5150 for DTS after being found walking down the road naked. Pt reported to EMS that he is suicidal and is hearing voices. Pt has a hx of schizophrenia and previous suicide attempt via overdose on aspirin. Assessment What has happened this shift: Received pt in bed w/o distress at the beginning of the shift. Pt cooperative and laying down with blanket over his head. Pt did get up and ate snack in group room then went back to bed. Pt reports hopelessness and remained in bed for the rest of shift. Pt ignores most questions, and answers few with short or one word responses. S/I, H/I: Denies A/VH: Denies; internally preoccupied Sleep: See sleep hrs ADL's: Requires direction and encouragement. Group attendance: N/A Were meds taken: Yes Any med S/E: Denies Mental Status Exam Appearance: Disheveled/unkempt Eye contact: Poor Behavior: Resistive to care, tired, isolative and withdrawn. Remained in bed for most of shift Speech: Soft, minimal Mood: Depressed Affect: Constricted Thought process: Unable to assess due to poverty of speech/uncooperative Thought Content: Unable to assess Cognition: Unable to assess Insight: Poor Judgment: Poor Interventions PRN's used: None Therapeutic interventions: Introduced self and attempted to establish rapport, maintained and safe and therapeutic environment, provided clear and simple instructions, attempted to orient to reality, encouraged independent performance of ADLs, and maintained Q 15min safety checks. Restraints/seclusion/emergency medication: N/A Justification of Continued Inpatient Treatment: Pt. requires interruption of current crisis, medication adjustments, and a safe and therapeutic environment.
[2020-06-14 08:16] VITALS: BP 104/69
[2020-06-14] MEDS: olanzapine 10mg tablet PO SCH ×2 (08:21→20:15)
--- NOTE | 2020-06-14 15:10 | NUR ---
DISCHARGE PLANNING Aydin's dad, Venkata (ph# [phone]), can pick pulling machine operator Aydin on Friday afternoon to take him back to [place]. He requested a supply of medications. EDWIN Castanon, reported he will send meds to [facility] so they can get delivered prior to discharge. Scheduled Aydin's follow up at [facility] in [place], [place]. JASON Jackson
--- NOTE | 2020-06-14 15:36 | NUR ---
Nursing Progress Note Legal hold: 5250 Expires 06/21 Client on is involuntary status for DTS Report received from RANDALL Ayers with use of SBAR Why they are here: Pt admitted for 5150 for DTS after being found walking down the road naked. Pt reported to EMS that he is suicidal and is hearing voices. Pt has a hx of schizophrenia and previous suicide attempt via overdose on aspirin. Assessment What has happened this shift: Received patient sleeping in bed covers pulled over his head, respirations even and unlabored. Pt was arousable. Patient up for snacks and meals, otherwise he lays in bed with blankets pulled up over his head or sits up against the wall. Pt declined 1:1 initially I am going to sleep now, but then allowed assessment. Pt does not engage in conversation with junior underwriter, and does not respond when asking about S/I. Junior Underwriter later attempted to talk to pt, when asked how he was doing pt stated I just want to get out of here. Pt is polite and is states it will be good to see my dad. Pt's dad driving from [place], will be here Friday to fruit picker. S/I, H/I: Denies both. A/VH: Denies; internally preoccupied Sleep: 8.0 hours per sleep assessment. Pt. in bed most of day, napped. ADL's: Requires direction and encouragement. Group attendance: No scheduled groups today. Were meds taken: Yes, without issue. Any med S/E: None reported or observed. Mental Status Exam Appearance: Disheveled, unkempt. Dressed in green unity scrubs. Encouraged to shower. Eye contact: Poor Behavior: Resistive to care initially then cooperative. Isolates to bed, up for meals and snacks. Speech: Soft, minimal Mood: Euthymic Affect: Constricted Thought process: Poverty of thought. Thought Content: Wants to sleep, wants to leave. Cognition: A&O Insight: Poor Judgment: Poor Interventions PRN's used: None Therapeutic interventions: Introduced self and attempted to establish rapport, maintained and safe and therapeutic environment, provided clear and simple instructions, encouraged independent performance of ADLs, and maintained Q 15min safety checks. Restraints/seclusion/emergency medication: N/A Justification of Continued Inpatient Treatment: Pt. requires interruption of current crisis, medication adjustments, and a safe and therapeutic environment.
--- NOTE | 2020-06-14 17:13 | NUR ---
Patient sitting in community room watching T.Vickie.
[2020-06-14 19:29] VITALS: BP 133/77
--- NOTE | 2020-06-14 23:02 | NUR ---
Nursing Progress Note Legal hold: 5250 Client on is involuntary status for DTS Report received from mely PEREIRA with use of SBAR Why they are here: Pt admitted for 5150 for DTS after being found walking down the road naked. Pt reported to EMS that he is suicidal and is hearing voices. Pt has a hx of schizophrenia and previous suicide attempt via overdose on aspirin. Assessment What has happened this shift: Received pt in bed lying awake. Pt was more alert than previous evenings, and more willing to engage. Pt is looking forward to going home with his father, pt reports that his dad is a good support person for him. Pt denies having any complaints or concerns and accepts hs meds without issue. S/I, H/I: Denies A/VH: Denies Sleep: See sleep hrs ADL's: Requires encouragement. Group attendance: N/A Were meds taken: Yes Any med S/E: Denies Mental Status Exam Appearance: Disheveled/unkempt Eye contact: fair Behavior: tired, isolative and withdrawn. Remained in bed for most of shift Speech: Soft, minimal Mood: Depressed Affect: Constricted Thought process: Unable to assess due to poverty of speech/uncooperative Thought Content: Unable to assess Cognition: Unable to assess Insight: Poor Judgment: Poor Interventions PRN's used: None Therapeutic interventions: Introduced self and attempted to establish rapport, maintained and safe and therapeutic environment, provided clear and simple instructions, attempted to orient to reality, encouraged independent performance of ADLs, and maintained Q 15min safety checks. Restraints/seclusion/emergency medication: N/A Justification of Continued Inpatient Treatment: Pt. requires interruption of current crisis, medication adjustments, and a safe and therapeutic environment.
[2020-06-15] MEDS: olanzapine 10mg tablet PO SCH ×2 (08:04→20:06)
[2020-06-15 08:09] VITALS: BP 110/82
[2020-06-15] MEDS ORDERED: TRAZ-251 PO (09:10)
[2020-06-15] MEDS ORDERED: OLAN20TA19 PO (09:10)
[2020-06-15] MEDS ORDERED: OLAN10TA19 PO (09:10)
[2020-06-15] MEDS ORDERED: HYDR-3686 PO (09:10)
--- NOTE | 2020-06-15 09:41 | NUR ---
Reassessment: Pt PO 75-100% avg meals meeting needs. LBM 4/. No nutrition concerns at this time. Will continue to monitor. Rec: 1. continue regular diet 2. routine bowel care 3. weekly wts Addendum: 06/15/20 at [address] Amended: Links added.
--- NOTE | 2020-06-15 10:23 | NUR ---
DISCHARGE Friday06/16/20 Aydin's dad, Venkata (ph# [phone]), called to report he is going to leave early tomorrow AM and hopes to be in [place] around 4 PM to pick up driver Aydin. Informed him of follow up appt that has been made and that Aydin will have a 30 day supply of meds upon discharge. JASON Jackson
--- NOTE | 2020-06-15 13:29 | NUR ---
Nursing Progress Note Legal hold: 5250 Expires 06/21 Client on is involuntary status for DTS Report received from RANDALL Thakur with use of SBAR Why they are here: Pt admitted for 5150 for DTS after being found walking down the road naked. Pt reported to EMS that he is suicidal and is hearing voices. Pt has a hx of schizophrenia and previous suicide attempt via overdose on aspirin. Assessment What has happened this shift: Received patient sleeping in bed covers pulled over his head, respirations even and unlabored. Pt aroused to name. Patient up for snacks and meals, otherwise he lays in bed with blankets pulled up over his head or sits up against the wall. Pt isolated to his room most the morning, but did get up and sit in community room in the afternoon. Pt continues to present with a guarded affect and doesnt elaborate on MH questions, just states no to everything. Up for meals and snacks. Pt was encouraged to shower, but declined. Pt just wants to go home. Pts father is supposed to be here tomorrow 06/16 around 1600 to pecan picker patient. S/I, H/I: Denies both. A/VH: Denies; internally preoccupied Sleep: 9.0 hours per sleep assessment. Pt. in bed most of day, napped or sitting up against wall. ADL's: Requires direction and encouragement. Declined shower. Group attendance: No scheduled groups today. Were meds taken: Yes, without issue. Any med S/E: None reported or observed. Mental Status Exam Appearance: Disheveled, unkempt. Dressed in green unity scrubs. Encouraged to shower. Eye contact: Poor Behavior: Resistive to care initially then cooperative. Isolates to bed, up for meals and snacks. Speech: Soft, minimal Mood: Euthymic Affect: Constricted Thought process: Poverty of thought. Thought Content: Wants to sleep, wants to leave. Cognition: A&O Insight: Poor Judgment: Poor Interventions PRN's used: None Therapeutic interventions: Introduced self and attempted to establish rapport, maintained and safe and therapeutic environment, provided clear and simple instructions, encouraged independent performance of ADLs, and maintained Q 15min safety checks. Restraints/seclusion/emergency medication: N/A Justification of Continued Inpatient Treatment: Pt. requires interruption of current crisis, medication adjustments, and a safe and therapeutic environment.
--- NOTE | 2020-06-16 03:43 | NUR ---
Nursing Progress Note Legal hold: 5250 Client on is involuntary status for DTS Report received from Oscar PEREIRA with use of SBAR Why they are here: Pt admitted for 5150 for DTS after being found walking down the road naked. Pt reported to EMS that he is suicidal and is hearing voices. Pt has a hx of schizophrenia and previous suicide attempt via overdose on aspirin. Assessment What has happened this shift: Received pt in bed lying awake. Pt still isolates to his room and does not want to engage. Pt reports that he feels ready to leave and looks forward to seeing his father but still appears depressed and withdrawn. Pt denied having any complaints or needs at this time. Hs meds were taken without issue. S/I, H/I: Denies A/VH: Denies Sleep: See sleep hrs ADL's: Requires encouragement. Group attendance: N/A Were meds taken: Yes Any med S/E: Denies Mental Status Exam Appearance: Disheveled/unkempt Eye contact: fair Behavior: tired, isolative and withdrawn. Remained in bed for most of shift Speech: Soft, minimal Mood: Depressed Affect: Constricted Thought process: Unable to assess due to poverty of speech/uncooperative Thought Content: Unable to assess Cognition: Unable to assess Insight: Poor Judgment: Poor Interventions PRN's used: None Therapeutic interventions: Introduced self and attempted to establish rapport, maintained and safe and therapeutic environment, provided clear and simple instructions, attempted to orient to reality, encouraged independent performance of ADLs, and maintained Q 15min safety checks. Restraints/seclusion/emergency medication: N/A Justification of Continued Inpatient Treatment: Pt. requires interruption of current crisis, medication adjustments, and a safe and therapeutic environment.
[2020-06-16 07:41] VITALS: BP 101/69
[2020-06-16] MEDS: olanzapine 10mg tablet PO SCH (07:49)
--- NOTE | 2020-06-16 15:38 | NUR ---
Left voicemail message on father cell phone ([phone]) confirming ETA.
== END 2020-06-16 15:45 | disposition short-term general hospital (02) | DRG 750 ==
LOC: ADULT MH 20:47
PROVIDERS: ADMIT Psychiatry & Neurology Psychiatry; ATTEND Psychiatry & Neurology Psychiatry
DX: F25.0 Schizoaffective disorder, bipolar type (principal); R45.851 Suicidal ideations; Z59.0 Homelessness; Z56.0 Unemployment, unspecified; Z87.891 Personal history of nicotine dependence